=== PATIENT | female | born 1955 | race African-American/Black ===

== ENCOUNTER 2017-06-25 00:36 | Emergency (ER) | payer BC ==
[~2017-06-25] VITALS: Ht 165.1 cm; Wt 89.2 kg
[~2017-06-25 00:36] MED LIST: AMOXICILLIN875 MG PO; ASPIRIN ADULT L81 MG PO; ATENOLOL25 MG PO; ATORVASTATIN CA40 MG PO; BUSPIRONE10 MG PO; CHOLESTEROL DEFENSE; CIPROFLOXACN500 MG PO; COREG3.125 MG OR; COREG6.25 MG PO; ECOTRIN325 MG OR; FLONASE NASAL50 MCG; FOSAMAX10 MG OR; NAPROSYN500 MG OR; NITROSTAT0.4 MG SL; OMEPRAZOLE20 MG PO; PAIN RELIEF325 MG PO; PREVPAC PO; SIMVASTATIN20 MG PO; SIMVASTATIN40 MG PO; VICOPROFEN OR
[2017-06-25 01:40] LABS: HEMATOCRIT 39.2 % (37.0-47.0); HEMOGLOBIN 12.5 g/dl (12.0-16.0); IMMATURE GRANULOCYTES 0.1 % (0.0-1.0); MEAN CELL VOLUME 89.9 fL CALC (80.0-100.0); MEAN CORPUSCULAR HGB 28.7 pG CALC (26.0-32.0); MEAN CORPUSCULAR HGB CONC 31.9 g/L CALC (32.0-36.0); NEUT# 5.19 thou/uL (2.00-7.15); RED BLOOD COUNT 4.36 mill/uL (4.20-5.60); RED CELL DISTRI WIDTH 14.5 % (11.5-15.5)
[2017-06-25 02:21] LABS: ALBUMIN 3.7 g/dL (3.2-5.0); ALKALINE PHOSPHATASE 80 u/l (38-126); ANION GAP 17 (6-22 (CALC)); BILIRUBIN, TOTAL 0.4 mg/dL (0.0-1.4); BUN 14 mg/dL (8-23); BUN/CREATININE RATIO 19 (12-20 (CALC)); CARBON DIOXIDE 25 mmol/l (22-30); CHLORIDE 106 mmol/l (95-108); CREATININE 0.7 mg/dL (0.5-1.0); GFR > 60 ML/MIN (>=60 (CALC)); GFR FOR AFR.AMER. > 60 ML/MIN (>=60 (CALC)); POTASSIUM 3.6 mmol/l (3.5-5.1); SGOT/AST 15 u/l (9-36); SGPT/ALT 29 u/l (11-66); SODIUM 144 mmol/l (137-146); TOTAL PROTEIN 6.6 g/dL (6.3-8.2)
[2017-06-25] MEDS ORDERED: FLEXERIL PO (03:42)
[2017-06-25] MEDS ORDERED: NAPROSYN500 MG PO (03:42)
[2017-06-25 03:47] VITALS: BP 152/73
== END 2017-06-25 04:03 | disposition home or self-care (01) | DRG 552 ==
LOC: ED 00:36
PROVIDERS: Emergency Medicine
DX: M47.814 Spondylosis without myelopathy or radiculopathy, thoracic region (principal); F41.9 Anxiety disorder, unspecified; I10 Essential (primary) hypertension

== ENCOUNTER 2020-01-22 02:53 | Observation (INO) | payer MEDICARE ==
[~2020-01-22] VITALS: Ht 167.6 cm; Wt 92.0 kg
[~2020-01-22 02:53] MED LIST changes: +FLEXERIL PO; +NAPROSYN500 MG PO
--- NOTE | 2020-01-22 03:45 | NUR ---
IV STARTED AND LABS DRAWN. PT GIVEN NITRO PASTE BUT NOT THE MORPHINE/ZOFRAN PT STATES SHE IS PAIN FREE AT THE PRESENT TIME.
[2020-01-22 03:55] LABS: HEMOGLOBIN 12.3 g/dl (12.0-16.0); IMMATURE GRANULOCYTES 0.1 % (0.0-5.0); MEAN CELL VOLUME 88.2 fL CALC (80.0-100.0); MEAN CORPUSCULAR HGB 27.8 pG CALC (26.0-32.0); MEAN CORPUSCULAR HGB CONC 31.5 g/dL CAL (32.0-36.0); NEUT# 4.42 thou/uL (2.00-7.15); RED BLOOD COUNT 4.42 mill/uL (4.20-5.60); RED CELL DISTRI WIDTH 14.3 % (11.5-15.5)
[2020-01-22 04:09] LABS: ALBUMIN 4.3 g/dL (3.2-5.0); ALKALINE PHOSPHATASE 92 u/l (38-126); ANION GAP 10 (6-22 (CALC)); BILIRUBIN, TOTAL 0.4 mg/dL (0.0-1.4); BUN 17 mg/dL (8-23); BUN/CREATININE RATIO 25 (12-20 (CALC)); CARBON DIOXIDE 30 mmol/l (22-30); CHLORIDE 106 mmol/l (95-108); CREATININE 0.7 mg/dL (0.5-1.0); GFR > 60 ML/MIN (>=60 (CALC)); GFR FOR AFR.AMER. > 60 ML/MIN (>=60 (CALC)); LIPASE 49 u/l (23-300); POTASSIUM 3.8 mmol/l (3.5-5.1); SGOT/AST 20 u/l (9-36); SODIUM 143 mmol/l (137-146); TOTAL PROTEIN 7.7 g/dL (6.3-8.2)
--- NOTE | 2020-01-22 04:11 | NUR ---
PT UP TO BR TO VOID WITH ASSIST. URINE SENT TO LAB. TOLERATED WELL.
[2020-01-22 04:21] LABS: MYOGLOBIN 38 ng/mL (0 - 62)
[2020-01-22 05:33] LABS: URINE BILIRUBIN - DIPSTICK NEGATIVE (NEGATIVE); URINE BLOOD DIPSTICK NEGATIVE (NEGATIVE); URINE COLOR YELLOW; URINE GLUCOSE - DIPSTICK NEGATIVE (NEGATIVE); URINE KETONE NEGATIVE (NEGATIVE); URINE LEUK ESTERASE NEGATIVE (NEGATIVE); URINE NITRITE - DIPSTICK NEGATIVE (Negative); URINE PROTEIN - DIPSTICK NEGATIVE (NEG-TRACE); URINE UROBILINOGEN - DIPSTICK 0.2 E.U./dL (0.2)
--- NOTE | 2020-01-22 06:25 | NUR ---
PT RESTING. NO C/O. VSS.
--- NOTE | 2020-01-22 07:00 | NUR ---
recieved for care, stable. Awaiting discharge. Good spirits.
[2020-01-22 07:04] LABS: CHOLESTEROL HDL RATIO 3.8 (<4.4 (CALC))
--- NOTE | 2020-01-22 10:10 | NUR ---
PT AMBULATED TO BATHROOM WITH STEADY GAIT, TOLERATED ACTIVITY WITHOUT DISTRESS.
--- NOTE | 2020-01-22 11:44 | NUR ---
Patient uncomfortable on stretcher, requesting to sit up in chair. No distress at this time, denies pain. Assited to chair. Call alexander in reach.
[2020-01-22] MEDS ORDERED: AMLODIPINE BESYL5 MG PO (12:35)
[2020-01-22 13:20] VITALS: BP 154/68
--- NOTE | 2020-01-22 13:20 | NUR ---
Discharge instructions given. Patient verbalizes understanding of same. Discharged in stable condition via Ambulatory to Home with script and d/c instructions in hand. All belongings sent with pt.
== END 2020-01-22 13:20 | disposition home or self-care (01) ==
LOC: ED 02:53 → ED-I 04:50 → ED 05:12 → ED-I 05:13
PROVIDERS: Emergency Medicine; ADMIT Internal Medicine; ATTEND Internal Medicine
DX: R07.89 Other chest pain (principal); I10 Essential (primary) hypertension; K21.9 Gastro-esophageal reflux disease without esophagitis; F41.9 Anxiety disorder, unspecified; Z20.828 Contact with and (suspected) exposure to other viral communicable diseases

== ENCOUNTER 2020-02-12 19:39 | Emergency (ER) | payer MEDICARE ==
[~2020-02-12] VITALS: Ht 167.6 cm; Wt 90.0 kg
[~2020-02-12 19:39] MED LIST changes: +AMLODIPINE BESYL5 MG PO
[2020-02-12] MEDS ORDERED: CRESTOR10 MG PO (20:00)
[2020-02-12] MEDS ORDERED: COQ10200 MG PO (20:01)
[2020-02-12] MEDS ORDERED: BUSPAR5 M1 PO (20:04)
[2020-02-12 21:20] VITALS: BP 147/86
== END 2020-02-12 21:20 | disposition home or self-care (01) ==
LOC: ED 19:39
DX: R07.89 Other chest pain (principal); I11.0 Hypertensive heart disease with heart failure; I50.9 Heart failure, unspecified; F41.9 Anxiety disorder, unspecified; K21.9 Gastro-esophageal reflux disease without esophagitis

== ENCOUNTER 2020-05-18 17:58 | Emergency (ER) | payer MEDICARE ==
[~2020-05-18] VITALS: Ht 167.6 cm; Wt 88.6 kg
[~2020-05-18 17:58] MED LIST changes: +BUSPAR5 M1 PO; +COQ10200 MG PO; +CRESTOR10 MG PO
[2020-05-18 19:20] LABS: HEMATOCRIT 37.9 % (37.0-47.0); IMMATURE GRANULOCYTES 0.3 % (0.0-5.0); MEAN CELL VOLUME 88.3 fL CALC (80.0-100.0); MEAN CORPUSCULAR HGB CONC 31.7 g/dL CAL (32.0-36.0); NEUT# 3.77 thou/uL (2.00-7.15); RED BLOOD COUNT 4.29 mill/uL (4.20-5.60); RED CELL DISTRI WIDTH 14.3 % (11.5-15.5)
[2020-05-18 19:34] LABS: ALBUMIN 4.2 g/dL (3.2-5.0); ALKALINE PHOSPHATASE 76 u/l (38-126); ANION GAP 9 (6-22 (CALC)); BUN 9 mg/dL (8-23); BUN/CREATININE RATIO 14 (12-20 (CALC)); CARBON DIOXIDE 29 mmol/l (22-30); CHLORIDE 103 mmol/l (95-108); CREATININE 0.6 mg/dL (0.5-1.0); GFR > 60 ML/MIN (>=60 (CALC)); GFR FOR AFR.AMER. > 60 ML/MIN (>=60 (CALC)); LIPASE 42 u/l (23-300); POTASSIUM 3.4 mmol/l (3.5-5.1); SGOT/AST 21 u/l (9-36); SODIUM 138 mmol/l (137-146); TOTAL PROTEIN 7.3 g/dL (6.3-8.2)
[2020-05-18 19:37] LABS: BILIRUBIN, TOTAL 0.6 mg/dL (0.0-1.4)
[2020-05-18 19:40] LABS: PROTHROMBIN TIME 11.4 SECONDS (9.0-12.5)
[2020-05-18 19:42] LABS: INTERNATIONAL NORMALIZED RATIO 1.1 RATIO (0.7-1.3)
[2020-05-18 19:53] LABS: D-DIMER 0.49 mg/L (0.19-0.60)
[2020-05-18] MEDS ORDERED: ASPIRIN81 MG PO (23:09)
[2020-05-18] MEDS ORDERED: PEPCID20 MG PO (23:10)
[2020-05-19] MEDS ORDERED: CLONIDINE0.1 MG PO (01:25)
[2020-05-19] MEDS ORDERED: NAPROXEN500 MG PO (01:25)
[2020-05-19 01:37] VITALS: BP 163/74
== END 2020-05-19 01:37 | disposition home or self-care (01) ==
LOC: ED 17:58
DX: R07.89 Other chest pain (principal); I11.0 Hypertensive heart disease with heart failure; I50.9 Heart failure, unspecified; F41.9 Anxiety disorder, unspecified; K21.9 Gastro-esophageal reflux disease without esophagitis
CPT/HCPCS: Q9967

== ENCOUNTER 2020-07-08 01:08 | Observation (INO) | payer MEDICARE ==
[~2020-07-08 01:08] MED LIST changes: +ASPIRIN81 MG PO; +CLONIDINE0.1 MG PO; +NAPROXEN500 MG PO; +PEPCID20 MG PO
--- NOTE | 2020-07-08 01:10 | NUR ---
AMBULATED TO ROOM WITH STEADY GAIT
[2020-07-08 01:59] LABS: HEMATOCRIT 40.5 % (37.0-47.0); HEMOGLOBIN 12.8 g/dl (12.0-16.0); IMMATURE GRANULOCYTES 0.4 % (0.0-5.0); MEAN CELL VOLUME 88.2 fL CALC (80.0-100.0); MEAN CORPUSCULAR HGB 27.9 pG CALC (26.0-32.0); MEAN CORPUSCULAR HGB CONC 31.6 g/dL CAL (32.0-36.0); NEUT# 4.46 thou/uL (2.00-7.15); RED BLOOD COUNT 4.59 mill/uL (4.20-5.60); RED CELL DISTRI WIDTH 14.6 % (11.5-15.5)
--- NOTE | 2020-07-08 02:00 | NUR ---
RESTING QUIETLY AWAITING TEST RESULTS.
[2020-07-08 02:12] LABS: ALBUMIN 3.9 g/dL (3.2-5.0); ALKALINE PHOSPHATASE 79 u/l (38-126); ANION GAP 9 (6-22 (CALC)); BILIRUBIN, TOTAL 0.5 mg/dL (0.0-1.4); BUN 10 mg/dL (8-23); BUN/CREATININE RATIO 14 (12-20 (CALC)); CARBON DIOXIDE 31 mmol/l (22-30); CHLORIDE 104 mmol/l (95-108); CREATININE 0.7 mg/dL (0.5-1.0); GFR > 60 ML/MIN (>=60 (CALC)); GFR FOR AFR.AMER. > 60 ML/MIN (>=60 (CALC)); LIPASE 60 u/l (23-300); POTASSIUM 3.5 mmol/l (3.5-5.1); SGOT/AST 18 u/l (9-36); SODIUM 140 mmol/l (137-146); TOTAL PROTEIN 6.7 g/dL (6.3-8.2)
[2020-07-08] MEDS ORDERED: AMLODIPINE BESYL5 MG PO (02:40)
[2020-07-08] MEDS ORDERED: ISORDIL10 MG PO (02:41)
[2020-07-08] MEDS ORDERED: BUSPAR5 MG PO (02:43)
--- NOTE | 2020-07-08 03:00 | NUR ---
NO SIGNIFICANT CHANGE IN EXAM. AWAITING DISPO.
--- NOTE | 2020-07-08 03:52 | NUR ---
Admission Note Report Given to: LARY GEIGER Transported by: X Wheelchair Stretcher Transported with: X Nurse Transporter X Patent IV O2 X Barrel Endshake Adjuster Location: ICU X MS2
--- NOTE | 2020-07-08 03:55 | NUR ---
PT ARRIVED TO FLOOR VIA WHEELCHAIR ACCOMPAINED BY ER STAFF. PT A&OX4. NO APPARENT DISTRESS NOTED. RESPIRATIONS EVEN AND UNLABORED. PT AMBULATORY WITH STEADY GAIT FROM WHEELCHAIR TO BED. SKIN INTACT. 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 IV SITE APPEARS HEALTHY. DISCUSSED POC AND ORIENTED PT TO ROOM AND CALL LIGHT SYSTEM. EDUCATED PT ON SAFETY PRECAUTIONS. PT VERBALIZED UNDERSTANDING. NO CURRENT WANTS OR NEEDS. PT DENIES ANY PAIN OR DISCOMFORT. CALL LIGHT WITHIN REACH. WILL CONTINUE TO MONITOR.
[2020-07-08 04:05] VITALS: BP 142/72
[2020-07-08 07:35] VITALS: BP 139/66
--- NOTE | 2020-07-08 08:13 | NUR ---
PT SEEN AT REST IN THE BED IN NO DISTRESS. SHE IS ALERT AND ORIENTED X 3. NO REPORT OF CHEST PAIN OR SHORTNESS OF BREATH.
[2020-07-08 09:19] LABS: CHOLESTEROL HDL RATIO 2.4 (<4.4 (CALC))
[2020-07-08 11:04] VITALS: BP 131/68
[2020-07-08] MEDS ORDERED: METHOCARBAMOL500 MG PO (12:00)
--- NOTE | 2020-07-08 12:30 | NUR ---
PT HAS HAD THIRD NEGATIVE TROPONIN AND HAS BEEN DISCHARGED TO HOME A RESULT. PT VERBALIZES UNDERSTANDING OF DC INSTRUCTIONS, TAKEN TO BENCH OUTSIDE TO WAIT FOR HER DAUGHTER WHO HAS BEEN CALLED. PT LEAVES [facility] IN STABLE CONDITION.
== END 2020-07-08 12:30 | disposition home or self-care (01) ==
LOC: ED 01:08 → ED-I 02:40 → ED 02:53 → MS2 02:54
PROVIDERS: Emergency Medicine; Nurse Practitioner; ADMIT Internal Medicine; ATTEND Internal Medicine
DX: R07.9 Chest pain, unspecified (principal); I11.0 Hypertensive heart disease with heart failure; I50.9 Heart failure, unspecified; F41.9 Anxiety disorder, unspecified; I25.10 Atherosclerotic heart disease of native coronary artery without angina pectoris; E78.5 Hyperlipidemia, unspecified; K21.9 Gastro-esophageal reflux disease without esophagitis; Z20.822 Contact with and (suspected) exposure to COVID-19
CPT/HCPCS: G0378

== ENCOUNTER 2020-07-17 16:41 | Observation (INO) | payer MEDICARE ==
[~2020-07-17] VITALS: Ht 167.6 cm; Wt 106.0 kg
[~2020-07-17 16:41] MED LIST changes: +BUSPAR5 MG PO; +ISORDIL10 MG PO; +METHOCARBAMOL500 MG PO
--- NOTE | 2020-07-17 16:45 | NUR ---
PATIENT TO ROOM FOR TRIAGE.
--- NOTE | 2020-07-17 17:30 | NUR ---
MULTPLE ATTEMPTS FOR IV ACCESS. RFA IV STARTED. GOOD BLOOD RETURN. LIMITED IV ACCESS NOTED.
[2020-07-17 17:42] LABS: HEMATOCRIT 38.8 % (37.0-47.0); IMMATURE GRANULOCYTES 0.3 % (0.0-5.0); MEAN CELL VOLUME 89.6 fL CALC (80.0-100.0); MEAN CORPUSCULAR HGB 27.7 pG CALC (26.0-32.0); MEAN CORPUSCULAR HGB CONC 30.9 g/dL CAL (32.0-36.0); NEUT# 3.6 thou/uL (2.00-7.15); RED BLOOD COUNT 4.33 mill/uL (4.20-5.60); RED CELL DISTRI WIDTH 14.4 % (11.5-15.5)
--- NOTE | 2020-07-17 17:45 | NUR ---
Reassessment of patient completed. No distress noted.
[2020-07-17 17:58] LABS: URINE BILIRUBIN - DIPSTICK NEGATIVE (NEGATIVE); URINE BLOOD DIPSTICK NEGATIVE (NEGATIVE); URINE COLOR YELLOW; URINE GLUCOSE - DIPSTICK NEGATIVE (NEGATIVE); URINE KETONE NEGATIVE (NEGATIVE); URINE LEUK ESTERASE NEGATIVE (NEGATIVE); URINE PROTEIN - DIPSTICK NEGATIVE (NEG-TRACE)
[2020-07-17 18:05] LABS: URINE NITRITE - DIPSTICK NEGATIVE (Negative)
[2020-07-17 18:06] LABS: ALBUMIN 3.9 g/dL (3.2-5.0); ALKALINE PHOSPHATASE 77 u/l (38-126); ANION GAP 10 (6-22 (CALC)); BILIRUBIN, TOTAL 0.6 mg/dL (0.0-1.4); BUN 10 mg/dL (8-23); BUN/CREATININE RATIO 14 (12-20 (CALC)); CARBON DIOXIDE 27 mmol/l (22-30); CHLORIDE 105 mmol/l (95-108); CREATININE 0.7 mg/dL (0.5-1.0); GFR > 60 ML/MIN (>=60 (CALC)); GFR FOR AFR.AMER. > 60 ML/MIN (>=60 (CALC)); LIPASE 58 u/l (23-300); POTASSIUM 3.8 mmol/l (3.5-5.1); SGOT/AST 18 u/l (9-36); SODIUM 138 mmol/l (137-146); TOTAL PROTEIN 6.9 g/dL (6.3-8.2)
--- NOTE | 2020-07-17 18:45 | NUR ---
Reassessment of patient completed. No distress noted.
--- NOTE | 2020-07-17 19:45 | NUR ---
Reassessment of patient completed. No distress noted.
[2020-07-17] MEDS ORDERED: OMEPRAZOLE20 MG PO (20:08)
--- NOTE | 2020-07-17 20:15 | NUR ---
SNACKS AND DRINKS PROVIDED.
--- NOTE | 2020-07-17 20:45 | NUR ---
Reassessment of patient completed. No distress noted.
--- NOTE | 2020-07-17 21:25 | NUR ---
REPORT CALLED TO [facility] IN SBAR FORMAT. ALL QUESTIONS ANSWERED.
[2020-07-17 21:51] VITALS: BP 147/71
--- NOTE | 2020-07-17 22:28 | NUR ---
PATIENT ADMITTED FROM ER VIA WHEELCHAIR WITH ER STAFF IN ATTENDANCE. PATIENT IS ABLE TO TRANSFER SELF TO THE BED. PATIENT IS AWKAE ALERT AND ORIENTEDX3. PATIENT ADMITTED FOR CHEST PAIN BUT DENIES ANY CHEST PAIN AT THIS TIME. PATIENT DOES STATES THAT SHE HAS HAD INCREASE IN HER GERD SX RECENTLY EVEN WITH HER USUAL MEDS. DENIES ANY CHEST PAIN AT THIS TIME. PATIENT WITH TELE MONITOR IN PLACE AND INITIAL READING IS SB-58. PATIENT WITH IV SITE TO RIGHT FOREARM INTACT AND APPEARS HEALTHY AT THIS TIME.LUNGS ARE CLEAR. NO PERIPHERAL EDEMA NOTED. PULSES ARE PALPABLE. STATES LAST BM WAS TODAY. AND DENIES ANY DIFFICULTY WITH URINATION. PATIENT PROVIDED WITH MICROWAVE MEAL AND DRINK. ORIENTED TO ROOM AND SURROUNDINGS. INSTRUCTED ON USE OF NURSE CALL LIGHT SYSTEM, TV REMOTE AND PHONE. SAFETY PRECAUTIONS REINFORCED. PATIENT DOES HAVE SCHEDULED APPT WITH DR. OREN GILL AT 2:45. WILL CONT TO MONITOR.
--- NOTE | 2020-07-18 | NUR ---
PATIENT RESTING IN BED AT THIS TIME WITH EYES CLOSED AND RESPS EVEN AND UNLABORED. TELE MONITOR IN PLACE AND LAST READING WAS SB-54. CALL LIGHT IN REACH. WILL CONT TO MONITOR.
[2020-07-18 00:15] VITALS: BP 119/65
[2020-07-18 04:00] VITALS: BP 117/65
[2020-07-18 05:10] LABS: HEMATOCRIT 37.8 % (37.0-47.0); HEMOGLOBIN 11.8 g/dl (12.0-16.0); IMMATURE GRANULOCYTES 0.3 % (0.0-5.0); MEAN CELL VOLUME 88.7 fL CALC (80.0-100.0); MEAN CORPUSCULAR HGB 27.7 pG CALC (26.0-32.0); MEAN CORPUSCULAR HGB CONC 31.2 g/dL CAL (32.0-36.0); NEUT# 3.52 thou/uL (2.00-7.15); RED BLOOD COUNT 4.26 mill/uL (4.20-5.60); RED CELL DISTRI WIDTH 14.5 % (11.5-15.5)
[2020-07-18 05:31] LABS: ALBUMIN 3.4 g/dL (3.2-5.0); ALKALINE PHOSPHATASE 72 u/l (38-126); ANION GAP 9 (6-22 (CALC)); BILIRUBIN, TOTAL 0.6 mg/dL (0.0-1.4); BUN 9 mg/dL (8-23); BUN/CREATININE RATIO 13 (12-20 (CALC)); CARBON DIOXIDE 28 mmol/l (22-30); CHLORIDE 105 mmol/l (95-108); CREATININE 0.7 mg/dL (0.5-1.0); GFR > 60 ML/MIN (>=60 (CALC)); GFR FOR AFR.AMER. > 60 ML/MIN (>=60 (CALC)); POTASSIUM 3.6 mmol/l (3.5-5.1); SGOT/AST 17 u/l (9-36); SODIUM 138 mmol/l (137-146); TOTAL PROTEIN 6.3 g/dL (6.3-8.2)
--- NOTE | 2020-07-18 05:51 | NUR ---
PATIENT RESTING IN BED AT THIS TIME WITH EYES CLOSED. RESPS ARE EVEN AND UNLABORED. TELE MONITOR IN PLACE WITH LAST READING SR-60. TROP THIS MORNING IS NEG-0.012. SALINE LOCK TO RIGHT FOREARM INTACT. CALL LILT IN REACH. WILL CONT TO MONITOR.
--- NOTE | 2020-07-18 07:00 | NUR ---
PT REPORT RECEIVED FROM FARTUN LANGFORD
[2020-07-18 07:36] VITALS: BP 115/61
[2020-07-18 07:56] LABS: CHOLESTEROL HDL RATIO 3.1 (<4.4 (CALC))
--- NOTE | 2020-07-18 08:00 | NUR ---
PT WAS FOUND RESTING IN BED IN SEMI-FOWLERS POSITION;PT IS A&OX3;PT HAS NO REPORTS OF PAIN AT THIS TIME;VS AND ASSESSMENT WERE COMPLETED;HEART SOUNDS ARE REGULAR IN RATE AND RHYTHM;TELE IS IN PLACE;LUNG SOUNDS ARE CLEAR;RESPIRATIONS ARE EVEN AND UNLABORED ON RA;#20G IV IN RFA IS SL, PATENT AND FREE OF COMPLICATIONS AT THIS TIME;SAFETY PRECAUTIONS IN PLACE;CALL LIGHT WITHIN REACH;BED IN LOWEST POSITION;WILL CONTINUE TO MONITOR.
[2020-07-18 08:48] VITALS: BP 115/61
--- NOTE | 2020-07-18 08:50 | NUR ---
AND STEPHANIE ODONNELL AT BEDSIDE DISCUSSING POC WITH PT.
[2020-07-18] MEDS ORDERED: OMEPRAZOLE20 MG PO (09:25)
--- NOTE | 2020-07-18 09:35 | NUR ---
PT TRANSPORTED IN STABLE CONDITION VIA WC TO [facility] ACCOMPANIED BY STAFF
--- NOTE | 2020-07-18 09:47 | NUR ---
PT RETURNED FROM XRAY VIA WC IN STABLE [facility]DITON ACCOMPANIED BY STAFF
--- NOTE | 2020-07-18 10:25 | NUR ---
Discharge instructions given. Patient verbalizes understanding of same. Discharged in stable condition via Wheelchair to Home with . All belongings sent with pt. DISCHARGE PACKET GIVEN TO PT;DISCHARGE INSTRUCTIONS WERE EXPLAINED ALONG WITH MEDICATIONS;PT EXPRESSED UNDERSTANDING AND HAD NO FURTHER QUESTIONS;SIGNATURE OBTAINED;TELE WAS REMOVED;IV WAS REMOVED WITH NO COMPLICATIONS AND CATHETER INTACT; PT WAS TRANSPORTED TO [facility] IN STABLE CONDITION VIA ACCOMPANIED BY STAFF;ALL PT BELONGINGS WERE SENT WITH PT;PT WILL BE TRANSPORTED HOME BY SELF;
== END 2020-07-18 10:25 | disposition home or self-care (01) ==
LOC: ED 16:41 → ED-I 18:55 → ED 20:21 → MS2 20:22
PROVIDERS: Family Medicine; Nurse Practitioner; Nurse Practitioner Family; ADMIT Internal Medicine; ATTEND Internal Medicine
DX: K21.9 Gastro-esophageal reflux disease without esophagitis (principal); I11.0 Hypertensive heart disease with heart failure; I50.9 Heart failure, unspecified; I25.10 Atherosclerotic heart disease of native coronary artery without angina pectoris; E78.5 Hyperlipidemia, unspecified; F41.9 Anxiety disorder, unspecified; Z20.822 Contact with and (suspected) exposure to COVID-19
CPT/HCPCS: G0378; J1650

== ENCOUNTER 2023-03-19 08:58 | Emergency (ER) | payer MEDICARE ==
[~2023-03-19] VITALS: Ht 167.6 cm; Wt 88.0 kg
[2023-03-19 09:27] VITALS: BP 145/70
[2023-03-19 09:46] VITALS: BP 138/54
[2023-03-19 09:50] LABS: BASO% 0.7 % (0-3); EOS% 3.5 % (0-8); HEMATOCRIT 40.3 % (37.0-47.0); LYMPH% 39.1 % (15-41); MEAN CELL VOLUME 89.2 fL CALC (80.0-100.0); MEAN CORPUSCULAR HGB 28.8 pG CALC (26.0-32.0); MEAN CORPUSCULAR HGB CONC 32.3 g/dL CAL (32.0-36.0); MONO% 9.5 % (2-13); NEUT# 2.85 thou/uL (2.00-7.15); NEUT% 47.2 % (42-76); RED BLOOD COUNT 4.52 mill/uL (4.20-5.60); RED CELL DISTRI WIDTH 14.1 % (11.5-15.5)
[2023-03-19 10:04] LABS: ALBUMIN 4.4 g/dL (3.2-5.0); ALKALINE PHOSPHATASE 95 u/l (38-126); ANION GAP 11 (6-22 (CALC)); BILIRUBIN, TOTAL 0.5 mg/dL (0.02-1.3); BUN 14 mg/dL (8-23); BUN/CREATININE RATIO 17 (12-20 (CALC)); CHLORIDE 106 mmol/l (95-108); CREATININE 0.8 mg/dL (0.5-1.0); GFR FOR AFR.AMER. > 60 ML/MIN (>=60 (CALC)); GFR OTHER RACES > 60 ML/MIN (>=60 (CALC)); LIPASE 62 u/l (23-300); POTASSIUM 3.8 mmol/l (3.5-5.1); SGOT/AST 24 u/l (9-36); SODIUM 141 mmol/l (137-146); TOTAL PROTEIN 7.5 g/dL (6.3-8.2)
[2023-03-19 10:12] LABS: CARBON DIOXIDE 28 mmol/l (22-30)
[2023-03-19 10:55] LABS: URINE BILIRUBIN - DIPSTICK Negative (NEGATIVE); URINE BLOOD DIPSTICK Negative (NEGATIVE); URINE GLUCOSE - DIPSTICK Negative (NEGATIVE); URINE KETONE Negative (NEGATIVE); URINE LEUK ESTERASE Negative (NEGATIVE); URINE NITRITE - DIPSTICK Negative (Negative); URINE PH 5.5 (4.5-8.0); URINE PROTEIN - DIPSTICK Negative (NEG-TRACE); URINE UROBILINOGEN - DIPSTICK 0.2 E.U./dL (0.2)
[2023-03-19 11:01] VITALS: BP 142/65
[2023-03-19 11:16] VITALS: BP 146/67
[2023-03-19 11:16] LABS: URINE COLOR Yellow
[2023-03-19 11:31] VITALS: BP 156/68
[2023-03-19 14:00] VITALS: BP 156/68
== END 2023-03-19 14:00 | disposition home or self-care (01) ==
LOC: ED 08:58
PROVIDERS: Family Medicine
DX: R10.13 Epigastric pain (principal); I11.0 Hypertensive heart disease with heart failure; I50.9 Heart failure, unspecified; F41.9 Anxiety disorder, unspecified; K21.9 Gastro-esophageal reflux disease without esophagitis; E78.00 Pure hypercholesterolemia, unspecified
CPT/HCPCS: Q9967